=== PATIENT | female | born 1955 | race Caucasian/White ===

== ENCOUNTER 2024-02-08 18:50 | Emergency (ER) | payer MEDICARE ==
[~2024-02-08 18:50] MED LIST: Iopamidol-370 76% 500 ML MDV (1 ML CHARGE) ONE
[2024-02-08 21:02] LABS: #Basophils 0.08 10x3/uL (0.0-0.2); %Eosinophils 2.2 % (0.0-10.0); %Monocytes 8.4 % (0.0-10.0); %Neutrophils 54.1 % (42.0-75.0); Hematocrit 47.8 % (36.0-47.0); Hemoglobin 15.4 g/dL (12.0-16.0); Mean Corpuscular HGB CONC 32.2 g/dL (32.0-36.0); Mean Corpuscular Hemoglobin 28.9 pg (27.0-31.0); Mean Corpuscular Volume 89.8 fL (78.0-98.0); Mean Platelet Volume 9.7 fL (7.4-10.4); Platelet Count 308 10x3/uL (130-400); RBC Distribution Width 13.1 % (11.5-14.5); Red Blood Cell (RBC) Count 5.32 mill/uL (4.20-5.40)
[2024-02-08 21:16] LABS: PTT 27.7 sec (22.9-36.1)
[2024-02-08 22:02] LABS: Troponin I Less than 0.010 ng/mL (< 0.028)
[2024-02-08 22:03] LABS: ALT (SGPT) 21 U/L (8-55); AST (SGOT) 30 U/L (5-34); Alkaline Phosphatase 76 U/L (40-110); Anion Gap 18 mmol/L (10-20); BUN (Urea Nitrogen) 19 mg/dL (9.8-20.1); Bilirubin, Total 0.4 mg/dL (0.2-1.2); Calc. Creatinine Clearance 0 mL/min (70-130); Calcium 9.7 mg/dL (7.8-10.44); Carbon Dioxide 19 mmol/L (23-31); Chloride 106 mmol/L (98-107); Estimated GFR 76; Globulin 3.9 g/dL (2.4-3.5); Glucose 83 mg/dL (80-115); Potassium 4.5 mmol/L (3.5-5.1); Protein, Total 7.9 g/dL (5.8-8.1); Sodium 138 mmol/L (136-145)
[2024-02-08] MEDS ORDERED: Aspirin Chewable 81 MG TAB ONE (22:55)
== END 2024-02-08 23:31 | disposition home or self-care (01) ==
LOC: ERS 18:50
DX: R47.81 Slurred speech (principal); R20.2 Paresthesia of skin; R29.701 NIHSS score 1
CPT/HCPCS: 36415; 70450; 70496; 70498; 71045; 80053; 84484; 85025; 85610; 85730; 93005; Q9967

== ENCOUNTER 2024-02-19 11:14 | Outpatient (CLI) | payer MEDICARE | END 2024-02-19 11:15 | disposition home or self-care (01) | LOC: SCSMRI 11:14 | PROVIDERS: ATTEND Nurse Practitioner Family | DX: R29.90 Unspecified symptoms and signs involving the nervous system (principal) | CPT/HCPCS: 70553; 76376 ==

== ENCOUNTER 2024-05-24 13:28 | Outpatient (CLI) | payer MEDICARE | END 2024-05-24 13:29 | disposition home or self-care (01) | LOC: BICRAD 13:28 | PROVIDERS: ATTEND Nurse Practitioner Family | DX: M25.522 Pain in left elbow (principal); R20.2 Paresthesia of skin ==